=== PATIENT | female | born 1995 ===

== ENCOUNTER 2020-04-03 22:50 | Inpatient (IN) | payer MEDICAID ==
[2020-04-04] MEDS ORDERED: hydrOXYzine Pamoate 25 MG Cap PO ONE (01:27)
[2020-04-04] MEDS ORDERED: Water For Irrigation,Sterile 1,000 ML Container IRR PRN (03:29)
[2020-04-04] MEDS ORDERED: Sodium Chloride 0.9% 2.5 ML Syringe FLUSH PRN (03:29)
[2020-04-04] MEDS ORDERED: Methylergonovine 0.2 MG/1 ML Amp IM PRN (03:29)
[2020-04-04] MEDS ORDERED: Sodium Chloride 0.9% 10 ML SDV IV PRN (03:29)
[2020-04-04] MEDS ORDERED: Butorphanol 1 MG/ML SDV IVPUSH PRN (03:29)
[2020-04-04] MEDS ORDERED: Lidocaine 1% 50 ML MDV INJECT PRN (03:29)
[2020-04-04] MEDS ORDERED: Tranexamic Acid 1,000 MG in Sodium Chloride 0.9% 100 ML IV PRN (03:29)
[2020-04-04] MEDS ORDERED: Sodium Chloride 0.9% 10 ML Syringe FLUSH PRN (03:29)
[2020-04-04] MEDS ORDERED: Misoprostol 200 MCG Tab PO PRN (03:29)
[2020-04-04] MEDS ORDERED: Ondansetron 4 MG Tab.DIS PO PRN (03:29)
[2020-04-04] MEDS ORDERED: Carboprost Tromethamine 250 MCG/1 ML Amp IM PRN (03:29)
[2020-04-04] MEDS ORDERED: Nalbuphine 10 MG/1 ML Vial IVPUSH PRN (03:29)
[2020-04-04] MEDS ORDERED: Oxytocin/0.9 % Sodium Chloride 30 UNIT/500 ML BAG IV SCH (03:30)
[2020-04-04] MEDS: Lactated Ringers 1,000 ML IV SCH ×2 (03:45→04:41)
[2020-04-04] MEDS ORDERED: Acetaminophen 500 MG Tab PO PRN (05:47)
[2020-04-04] MEDS ORDERED: Lanolin 100% Cream 7 GM Tube TOP PRN (05:47)
[2020-04-04] MEDS ORDERED: oxyCODONE 5 MG Tab PO PRN (05:47)
[2020-04-04] MEDS ORDERED: Bisacodyl 10 MG Supp RECTAL PRN (05:47)
[2020-04-04] MEDS ORDERED: Witch Hazel Medicated Pads 40/Jar TOP PRN (05:47)
[2020-04-04] MEDS ORDERED: Ibuprofen 400 MG Tab PO PRN (05:47)
[2020-04-04] MEDS ORDERED: Benzocaine/Menthol 20%-0.5% Spray 78 GM Cannister TOP PRN (05:47)
[2020-04-04] MEDS ORDERED: Docusate Sodium 100 MG Cap PO PRN (05:47)
[2020-04-04] MEDS ORDERED: Acetaminophen 500 MG Tab ONE (05:57)
[2020-04-04] MEDS: Acetaminophen 500 MG Tab PO PRN ×2 (06:00→20:10)
--- NOTE | 2020-04-04 06:00 | PCM.DEL ---
L & D Note - General Info Date of Service: 04/04/20 Mother's Due Date: 04/09/20 - Delivery Note Labor: Spontaneous Delivery Outcome: Livebirth Infant Delivery Method: Spontaneous Vaginal Delivery-Single Presentation: Left Occiput Anterior (CECILY) Nuchal Cord: None Anesthesia Type: None Amniotic Fluid Description: Bloody Episiotomy Type: None Laceration: None Cord: 3 Vessels Estimated Blood Loss: 100 Resuscitation Needed: No Score 1 min: 9 Score 5 min: 9 Second Stage Interventions: Reports: Pushing Effectively Delivery Comments (Free Text/Narrative):: Live Male delivered at 512am , 9/9 , weight 2740g - General Info Date of Service: 04/04/20 - Patient Data Weight - Most Recent: 55.792 kg Lab Results Last 24 Hours: Laboratory Results - last 24 hr 04/04/20 04/04/20 04/04/20 Range/Units 01:41 04:07 04:38 WBC 12.60 H (4.0-11.0) K/uL RBC 4.22 L (4.30-5.90) M/uL Hgb 12.4 (12.0-16.0) g/dL Hct 38.3 (36.0-46.0) % MCV 90.8 (80.0-98.0) fL MCH 29.4 (27.0-32.0) pg MCHC 32.4 (31.0-37.0) g/dL RDW Std Deviation 47.6 (28.0-62.0) fl RDW Coeff of Martha 14 (11.0-15.0) % Plt Count 154 (150-400) K/uL MPV 10.90 (7.40-12.00) fL Nucleated RBC % 0.0 /100WBC Nucleated RBCs # 0 K/uL SARS-CoV-2 RNA (DAVID) NEGATIVE (NEGATIVE) Blood Type B POSITIVE Antibody Screen NEGATIVE Med Orders - Current: Current Medications Acetaminophen (Tylenol Extra Strength) 500 mg PO Q4H PRN PRN Reason: Pain Acetaminophen (Tylenol Extra Strength) 1,000 mg PO Q4H PRN PRN Reason: Pain Benzocaine/Menthol (Dermoplast Pain Relief 20%-0.5% [place]) 78 gm TOP ASDIRECTED PRN PRN Reason: Perineal Comfort Measure Bisacodyl (Dulcolax) 10 mg RECTAL ONETIME PRN PRN Reason: Constipation Butorphanol Tartrate (Stadol) 1 mg IVPUSH Q1H PRN PRN Reason: Pain Carboprost Tromethamine (Hemabate Ds) 250 mcg IM ASDIRECTED PRN PRN Reason: Post Hemorrhage Docusate Sodium (Colace) 100 mg PO BID PRN PRN Reason: Constipation Emollient Ointment (Lansinoh Hpa) 0 gm TOP ASDIRECTED PRN PRN Reason: Sore Nipples Lactated Ringer's (Ringers, Lactated) 1,000 mls @ 150 mls/hr IV ASDIRECTED [facility] Last Admin: 04/04/20 04:41 Dose: 999 mls/hr Documented by: Oxytocin/Sodium Chloride (Oxytocin 30 Unit/500 Ml-Ns) 30 unit in 500 mls @ 999 mls/hr IV TITRATE [facility] Last Admin: 04/04/20 05:12 Dose: 999 mls/hr Documented by: Tranexamic Acid 1,000 mg/ (Sodium Chloride) 110 mls @ 660 mls/hr IV ONETIME PRN PRN Reason: Bleeding Ibuprofen (Motrin) 400 mg PO Q4H PRN PRN Reason: Pain Ibuprofen (Motrin) 800 mg PO Q6H PRN PRN Reason: Pain Lidocaine HCl (Xylocaine 1%) 50 ml INJECT ONETIME PRN PRN Reason: Laceration repair Methylergonovine Maleate (Methergine) 0.2 mg IM ASDIRECTED PRN PRN Reason: Post Hemorrhage Misoprostol (Cytotec) 200 mcg PO ONETIME PRN PRN Reason: Post Hemorrhage Nalbuphine HCl (Nubain) 10 mg IVPUSH Q1H PRN PRN Reason: Pain (severe 7-10) Ondansetron HCl (Zofran Odt) 4 mg PO Q6H PRN PRN Reason: Nausea/Vomiting Oxycodone HCl (Oxycodone) 5 mg PO Q2H PRN PRN Reason: Pain Sodium Chloride (Saline Flush) 10 ml FLUSH ASDIRECTED PRN PRN Reason: Keep Vein Open Sodium Chloride (Saline Flush) 2.5 ml FLUSH ASDIRECTED PRN PRN Reason: Keep Vein Open Sodium Chloride (Normal Saline) 10 ml IV ASDIRECTED PRN PRN Reason: IV Use Sterile Water (Sterile Water For Irrigation) 1,000 ml IRR ASDIRECTED PRN PRN Reason: delivery Witwiley Hayes (Tucks) 1 pad TOP ASDIRECTED PRN PRN Reason: comfort care Discontinued Medications Hydroxyzine Pamoate (Vistaril) 25 mg PO ONETIME ONE Stop: 04/04/20 01:28 Last Admin: 04/04/20 01:38 Dose: 25 mg Documented by: - Problem List & Annotations (1) Vaginal delivery SNOMED Code(s): 296890803 Code(s): O80 - ENCOUNTER FOR FULL-TERM UNCOMPLICATED DELIVERY Status: Acute Current Visit: Yes - Problem List Review Problem List Initiated/Reviewed/Updated: Yes - My Orders Last 24 Hours: My Active Orders 04/04/20 03:29 Patient Status [ADT] Routine May Shower [RC] ASDIRECTED Notify Provider [RC] PRN Up ad Noemí [RC] ASDIRECTED Vital Signs [RC] PER UNIT ROUTINE Butorphanol [Stadol] 1 mg IVPUSH Q1H PRN Carboprost Tromethamine [Hemabate DS] 250 mcg IM ASDIRECTED PRN Lidocaine 1% [Xylocaine 1%] 50 ml INJECT ONETIME PRN Methylergonovine [Methergine] 0.2 mg IM ASDIRECTED PRN Nalbuphine [Nubain] 10 mg IVPUSH Q1H PRN Ondansetron [Zofran ODT] 4 mg PO Q6H PRN Sodium Chloride 0.9% [Normal Saline] 10 ml IV ASDIRECTED PRN Sodium Chloride 0.9% [Saline Flush] 10 ml FLUSH ASDIRECTED PRN Sodium Chloride 0.9% [Saline Flush] 2.5 ml FLUSH ASDIRECTED PRN Tranexamic Acid [Cyklokapron] 1,000 mg Sodium Chloride 0.9% [Normal Saline] 100 ml IV ONETIME Water For Irrigation,Sterile [Sterile Water for Irrigation] 1,000 ml IRR ASDIRECTED PRN miSOPROStoL [Cytotec] 200 mcg PO ONETIME PRN Peripheral IV Insertion Adult [OM.PC] Routine 04/04/20 03:30 Lactated Ringers [Ringers, Lactated] 1,000 ml IV ASDIRECTED Oxytocin/0.9 % Sodium Chloride [Oxytocin 30 Unit/500 ML-NS] 30 unit in 500 ml IV TITRATE 04/04/20 04:38 RPR (SYPHILIS SERO) W/ RFLX [REF] Routine 04/04/20 05:47 Acetaminophen [Tylenol Extra Strength] 1,000 mg PO Q4H PRN Acetaminophen [Tylenol Extra Strength] 500 mg PO Q4H PRN Benzocaine/Menthol [Dermoplast Pain Relief 20%-0.5% [place]] 78 gm TOP ASDIRECTED PRN Docusate Sodium [Colace] 100 mg PO BID PRN Ibuprofen [Motrin] 400 mg PO Q4H PRN Ibuprofen [Motrin] 800 mg PO Q6H PRN Lanolin [Lansinoh HPA] See Dose Instructions TOP ASDIRECTED PRN bisacodyL [Dulcolax] 10 mg RECTAL ONETIME PRN oxyCODONE 5 mg PO Q2H PRN witch Jesus Alberto [Tucks] 1 pad TOP ASDIRECTED PRN Resuscitation Status Routine 04/04/20 05:48 Patient Status [ADT] Routine May Shower [RC] ASDIRECTED Up ad Noemí [RC] ASDIRECTED Vital Signs [RC] PER UNIT ROUTINE Assess Lochia [WOMSER] Per Unit Routine Assess Uterine Involution [WOMSER] Per Unit Routine Peripheral IV Discontinue [OM.PC] Routine 04/05/20 05:11 HEMOGLOBIN/HEMATOCRIT,HH [HEME] Timed - Assessment Assessment:: 25yo P2 s/p PPD 0
[2020-04-04] MEDS: Ibuprofen 800 MG Tab PO PRN ×2 (09:12→16:33)
--- NOTE | 2020-04-04 20:14 | OR ---
SURGEON: MIKE GRIMES DATE OF PROCEDURE: 04/04/2020 PREOPERATIVE DIAGNOSIS: A 25-year-old 2, para 1-0-0-1 at 39 weeks 2 days, admitted in early labor. POSTOPERATIVE DIAGNOSIS: A 25-year-old 2, para 1-0-0-1 at 39 weeks 2 days, admitted in early labor. PROCEDURE: Normal spontaneous vaginal delivery. ESTIMATED BLOOD LOSS: 100 mL. IV FLUIDS: Pitocin running. FINDING: A normal live male delivered at 5:12 a.m. scores 9 and 9. Weight is 2740 g. BRIEF HISTORY ABOUT THE PATIENT: She is a 25-year-old, G2, P 1-0-0-1, who came in complaining of contractions. She was observed. She made change from 3 cm to like 4 cm. She was complaining of extreme pain, so she was admitted. With the patient being admitted, she was requesting epidural. Then, she was complaining of pressure, and she had made change. She was noted to be fully dilated. PROCEDURE IN DETAIL: With the patient being fully dilated, she was encouraged to push. With good pushing effort, she delivered the head subsequently by the anterior and posterior shoulder. The body of the infant was delivered. The was placed on maternal abdomen. Delayed cord clamping was observed. Cord blood gases were obtained. Placenta was delivered via controlled cord traction. Then cord blood gas was obtained. Perineum was inspected and noted to be intact. Bimanual massage was done. Uterus was noted to be contracted. The patient tolerated the procedure well. All instrument and pad counts were correct times x2. EDI / ELLEN /[id number]
[2020-04-05] MEDS: Ibuprofen 800 MG Tab PO PRN (07:54)
--- NOTE | 2020-04-05 12:40 | PCM.PNPP ---
- General Info Date of Service: 04/05/20 Functional Status: Reports: Pain Controlled, Tolerating Diet, Ambulating, Urinating - Review of Systems General: Reports: Fatigue. Denies: Fever, Weakness Pulmonary: Denies: Shortness of Breath Cardiovascular: Denies: Chest Pain, Palpitations, Lightheadedness Gastrointestinal: Denies: Abdominal Pain, Nausea, Vomiting Genitourinary: Denies: Flank Pain Musculoskeletal: Reports: No Symptoms Skin: Reports: No Symptoms Neurological: Reports: No Symptoms Psychiatric: Reports: No Symptoms - General Info Date of Service: 04/05/20 - Patient Data Vital Signs - Most Recent: Last Vital Signs Temp 37.3 C 04/05/20 08:08 Pulse 75 04/05/20 08:08 Resp 16 04/05/20 08:08 BP 135/72 04/05/20 08:08 Pulse Ox 97 04/05/20 08:08 Weight - Most Recent: 55.792 kg Lab Results - Last 24 Hours: Laboratory Results - last 24 hr 04/05/20 Range/Units 05:45 Hgb 11.0 L (12.0-16.0) g/dL Hct 34.4 L (36.0-46.0) % Med Orders - Current: Current Medications Acetaminophen (Tylenol Extra Strength) 500 mg PO Q4H PRN PRN Reason: Pain Acetaminophen (Tylenol Extra Strength) 1,000 mg PO Q4H PRN PRN Reason: Pain Last Admin: 04/04/20 20:10 Dose: 1,000 mg Documented by: Benzocaine/Menthol (Dermoplast Pain Relief 20%-0.5% [facility]) 78 gm TOP ASDIRECTED PRN PRN Reason: Perineal Comfort Measure Bisacodyl (Dulcolax) 10 mg RECTAL ONETIME PRN PRN Reason: Constipation Butorphanol Tartrate (Stadol) 1 mg IVPUSH Q1H PRN PRN Reason: Pain Carboprost Tromethamine (Hemabate Ds) 250 mcg IM ASDIRECTED PRN PRN Reason: Post Hemorrhage Docusate Sodium (Colace) 100 mg PO BID PRN PRN Reason: Constipation Last Admin: 04/05/20 07:59 Dose: 100 mg Documented by: Emollient Ointment (Lansinoh Hpa) 0 gm TOP ASDIRECTED PRN PRN Reason: Sore Nipples Lactated Ringer's (Ringers, Lactated) 1,000 mls @ 150 mls/hr IV ASDIRECTED [facility] Last Admin: 04/04/20 04:41 Dose: 999 mls/hr Documented by: Oxytocin/Sodium Chloride (Oxytocin 30 Unit/500 Ml-Ns) 30 unit in 500 mls @ 999 mls/hr IV TITRATE [facility] Last Admin: 04/04/20 05:12 Dose: 999 mls/hr Documented by: Tranexamic Acid 1,000 mg/ (Sodium Chloride) 110 mls @ 660 mls/hr IV ONETIME PRN PRN Reason: Bleeding Ibuprofen (Motrin) 400 mg PO Q4H PRN PRN Reason: Pain Ibuprofen (Motrin) 800 mg PO Q6H PRN PRN Reason: Pain Last Admin: 04/05/20 07:54 Dose: 800 mg Documented by: Lidocaine HCl (Xylocaine 1%) 50 ml INJECT ONETIME PRN PRN Reason: Laceration repair Methylergonovine Maleate (Methergine) 0.2 mg IM ASDIRECTED PRN PRN Reason: Post Hemorrhage Misoprostol (Cytotec) 200 mcg PO ONETIME PRN PRN Reason: Post Hemorrhage Nalbuphine HCl (Nubain) 10 mg IVPUSH Q1H PRN PRN Reason: Pain (severe 7-10) Ondansetron HCl (Zofran Odt) 4 mg PO Q6H PRN PRN Reason: Nausea/Vomiting Oxycodone HCl (Oxycodone) 5 mg PO Q2H PRN PRN Reason: Pain Sodium Chloride (Saline Flush) 10 ml FLUSH ASDIRECTED PRN PRN Reason: Keep Vein Open Sodium Chloride (Saline Flush) 2.5 ml FLUSH ASDIRECTED PRN PRN Reason: Keep Vein Open Sodium Chloride (Normal Saline) 10 ml IV ASDIRECTED PRN PRN Reason: IV Use Sterile Water (Sterile Water For Irrigation) 1,000 ml IRR ASDIRECTED PRN PRN Reason: delivery Witch Abigail (Tucks) 1 pad TOP ASDIRECTED PRN PRN Reason: comfort care Discontinued Medications Acetaminophen (Tylenol Extra Strength) Confirm Administered Dose 1,000 mg .ROUTE .STK-MED ONE Stop: 04/04/20 05:58 Hydroxyzine Pamoate (Vistaril) 25 mg PO ONETIME ONE Stop: 04/04/20 01:28 Last Admin: 04/04/20 01:38 Dose: 25 mg Documented by: - Interaction Support Person: Mother - Recovery Exam Fundal Tone: Firm Fundal Level: 3 Fingerbreadths Below Umbilicus Fundal Placement: Midline Lochia Amount: Scant Lochia Color: Rubra/Red Perineum Description: Intact, Minimal Bruising/Swelling Episiotomy/Laceration: None Bladder Status: Voiding Urinary Elimination: Voided - Exam General: Alert, Oriented Lungs: Normal Respiratory Effort Cardiovascular: Regular Rate, Regular Rhythm GI/Abdominal Exam: Normal Bowel Sounds, Soft Extremities: Pedal Edema (trace). No: Royce's Sign Skin: Warm, Dry, Intact Neurological: No New Focal Deficit - Problem List & Annotations (1) Vaginal delivery SNOMED Code(s): 147162823 Code(s): O80 - ENCOUNTER FOR FULL-TERM UNCOMPLICATED DELIVERY Status: Acute Current Visit: Yes - Problem List Review Problem List Initiated/Reviewed/Updated: Yes - Assessment Assessment:: 25yo P2 s/p PPD 1 - Plan Plan:: VS and labs are reassuring. Patient is bottle feeding. She would like to go home today. Discharge instructions reviewed. Follow up at [facility] 4 week.
== END 2020-04-05 13:36 | disposition home or self-care (01) | DRG 807 ==
LOC: MW.OBCHECK 22:50 → MW.OB 22:57 → MW.OBCHECK 04-04 03:29 → OBSVTOIN 04-04 05:10 → MW.OB 04-04 09:25
PROVIDERS: ADMIT Obstetrics & Gynecology; ATTEND Obstetrics & Gynecology
PROC: 10E0XZZ Delivery of Products of Conception, External Approach (ICD-10-PCS; principal; 2020-04-04)
DX: O80 Encounter for full-term uncomplicated delivery (principal); Z37.0 Single live birth; Z3A.39 39 weeks gestation of pregnancy; Z20.828 Contact with and (suspected) exposure to other viral communicable diseases
CPT/HCPCS: 36415; 59025; 59409; 82803; 85014; 85018; 85027; 86592; 86850; 86900; 86901; A9270-GY; J2590; J7120; U0002